=== PATIENT | male | born 1980 | race Caucasian/White ===

== ENCOUNTER 2018-02-01 17:23 | Emergency (ER) | payer SELFPAY ==
[~2018-02-01] VITALS: Ht 185.4 cm; Wt 150.0 kg
[2018-02-01 17:30] VITALS: BP 120/71; PULSE 108; RESP 20; TEMP 98.7; O2SAT 97
[2018-02-01 17:43] VITALS: BP 124/84; PULSE 98; RESP 18; O2SAT 98
[2018-02-01] MEDS ORDERED: SODIUM CHLOR 0.9% 1000 ML INJ 1,000 ML IV ONE (17:52)
[2018-02-01 17:53] VITALS: BP_SYST 119; BP_SYST 145; BP_DIAS 70; BP_DIAS 82; RESP 18; O2SAT 99
[2018-02-01] MEDS ORDERED: SODIUM CHLORIDE 0.9% FLUSH 10 ML FLUSH IVF PRN (18:00)
--- NOTE | 2018-02-01 18:02 | PD ---
HPI Chief Complaint: Cardiac Complaint Time Seen by Provider: 17:42 Travel History International Travel<30 days: No Contact w/Intl Traveler<30days: No Traveled to known affect area: No History of Present Illness HPI The patient is a 37-year-old male who presents to the emergency department for possible syncopal episode. The patient states he was lying down earlier today when he "passed out "for approximately 30 seconds per his friends report. The patient states he does not remember passing out, was told he was unconscious for 30 seconds. The patient does have a history of previous syncopal episodes per his report, mostly when driving. The patient states he will be driving and all of a sudden realize he had passed out, however, will still be driving. He denies any motor vehicle accidents from his syncopal episodes while driving. The patient denies any known history of arrhythmias or dysrhythmias. He does occasionally state that he will get lightheaded and feel like his vision is blurring prior to his syncopal episodes. He denies any known history of aortic stenosis. The patient states he did see his physician and [facility] [place], [place], regarding his syncope, but never had a workup. He currently does not have a primary physician. He denies any chronic medical problems. He does not take any medications on a daily basis. He is allergic to penicillin. 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 PFSH Past Medical History Medical History: Denies Significant Hx Diminished Hearing: No Tetanus Vaccination: Unknown Influenza Vaccination: No ?: Not Past Surgical History Other Surgery: Yes (Abdominal surgery to remove cancerous tumors as a child) Social History Alcohol Use: No Tobacco Use: Yes Substance Use: No Allergies-Medications (Allergen,Severity, Reaction): Coded Allergies: No Known Allergies (Unverified , 02/01/18) Reported Meds & Prescriptions Reported Meds & Active Scripts Active No Active Prescriptions or Reported Medications Review of Systems Except as stated in HPI: all other systems reviewed are Neg General / Constitutional: No: Fever HENT: No: Lightheadedness Cardiovascular: Positive: Syncope, No: Chest Pain or Discomfort, Palpitations, Irregular Rhythm, Tachycardia, Diaphoresis Gastrointestinal: No: Nausea, Vomiting, Abdominal Pain Musculoskeletal: No: Weakness, Edema Neurologic: Positive: Syncope, No: Dizziness, Focal Abnormalities Physical Exam Narrative GENERAL: Awake, alert, nontoxic-appearing 37-year-old male who appears his stated age and is in no acute respiratory distress SKIN: Focused skin assessment warm/dry. HEAD: Atraumatic. Normocephalic. EYES: Pupils equal and round. 3 mm bilateral and reactive. ENT: No nasal bleeding or discharge. Mucous membranes pink and moist. NECK: Trachea midline. No JVD. CARDIOVASCULAR: Regular rate and rhythm. No murmur appreciated. Heart rate in the 90s. RESPIRATORY: No accessory muscle use. Clear to auscultation. Breath sounds equal bilaterally. GASTROINTESTINAL: Abdomen soft, morbidly obese. Well-healed scar on the left aspect of his abdomen that is transverse. MUSCULOSKELETAL: No obvious deformities. No clubbing. No cyanosis. Mild bilateral lower extremity edema. NEUROLOGICAL: Awake and alert. No obvious cranial nerve deficits. Motor grossly within normal limits. Normal speech. Nonfocal. PSYCHIATRIC: Appropriate mood and affect; insight and judgment normal. Data Data Last Documented VS Vital Signs Date Time Temp Pulse Resp B/P (MAP) Pulse Ox O2 Delivery O2 Flow Rate FiO2 02/01/18 21:00 02/01/18 19:15 92 18 98 Room Air 02/01/18 17:30 98.7 Orders Orders Electrocardiogram (02/01/18 17:52) Complete Blood Count With Diff (02/01/18 17:52) Comprehensive Metabolic Panel (02/01/18 17:52) Magnesium (Mg) (02/01/18 17:52) Ckmb (Isoenzyme) Profile (02/01/18 17:52) Troponin I (02/01/18 17:52) Ecg Monitoring (02/01/18 17:52) Iv Access Insert/Monitor (02/01/18 17:52) Oximetry (02/01/18 17:52) Sodium Chloride 0.9% Flush (Ns Flush) (02/01/18 18:00) Sodium Chlor 0.9% 1000 Ml Inj (Ns 1000 M (02/01/18 17:52) Orthostatic Vital Signs (02/01/18 17:52) CKMB (02/01/18 18:00) CKMB% (02/01/18 18:00) Ed Discharge Order (02/01/18 20:41) Labs Laboratory Tests Test 02/01/18 18:00 White Blood Count 8.6 TH/MM3 Red Blood Count 4.80 MIL/MM3 Hemoglobin 15.2 GM/DL Hematocrit 45.1 % Mean Corpuscular Volume 93.9 FL Mean Corpuscular Hemoglobin 31.7 PG Mean Corpuscular Hemoglobin Concent 33.7 % Red Cell Distribution Width 14.5 % Platelet Count 158 TH/MM3 Mean Platelet Volume 9.5 FL Neutrophils (%) (Auto) 57.1 % Lymphocytes (%) (Auto) 32.1 % Monocytes (%) (Auto) 7.8 % Eosinophils (%) (Auto) 1.9 % Basophils (%) (Auto) 1.1 % Neutrophils # (Auto) 4.9 TH/MM3 Lymphocytes # (Auto) 2.7 TH/MM3 Monocytes # (Auto) 0.7 TH/MM3 Eosinophils # (Auto) 0.2 TH/MM3 Basophils # (Auto) 0.1 TH/MM3 CBC Comment DIFF FINAL Differential Comment Blood Urea Nitrogen 20 MG/DL Creatinine 1.01 MG/DL Random Glucose 166 MG/DL Total Protein 7.9 GM/DL Albumin 3.2 GM/DL Calcium Level 9.0 MG/DL Magnesium Level 1.8 MG/DL Alkaline Phosphatase 80 U/L Aspartate Amino Transf (AST/SGOT) 46 U/L Alanine Aminotransferase (ALT/SGPT) 59 U/L Total Bilirubin 0.4 MG/DL Sodium Level 138 MEQ/L Potassium Level 4.0 MEQ/L Chloride Level 101 MEQ/L Carbon Dioxide Level 26.7 MEQ/L Anion Gap 10 MEQ/L Estimat Glomerular Filtration Rate 82 ML/MIN Total Creatine Kinase 296 U/L Creatine Kinase MB 3.0 NG/ML Troponin I LESS THAN 0.02 NG/ML MDM Medical Decision Making Medical Screen Exam Complete: Yes Emergency Medical Condition: Yes Medical Record Reviewed: Yes Interpretation(s) EKG reveals normal sinus rhythm with a rate of 99. No evidence of WPW or Brugada syndrome. No ectopy noted. Differential Diagnosis Differential diagnosis includes syncope, arrhythmia, dysrhythmia, near syncope, seizure, aortic stenosis, valvular disorder, electrolyte abnormality. Narrative Course IV was established, labs are drawn and sent, and the patient was placed on cardiac telemetry monitoring and continuous pulse oximetry monitoring. EKG was ordered and interpreted. The patient orthostatic vital signs were obtained, the patient's heart rate and blood pressure goes up when he stands, however, does not drop. The patient was signed out to the oncoming physician Dr. Ceballos, at 7 PM with laboratory evaluation pending. If labs are unremarkable the patient is stable for outpatient follow-up. Diagnosis Primary Impression: Syncope Qualified Codes: R55 - Syncope and collapse Scripts No Active Prescriptions or Reported Meds Condition: Stable Kristian Meza MD February 01, 2018 18:02
[2018-02-01 18:20] LABS: AUTOMATED NEUTROPHIL # 4.9 TH/MM3 (1.8-7.7); BASOPHIL # 0.1 TH/MM3 (0-0.2); BASOPHIL % 1.1 % (0.0-2.0); EOSINOPHIL # 0.2 TH/MM3 (0-0.4); EOSINOPHIL % 1.9 % (0.0-4.0); HEMATOCRIT 45.1 % (39.0-51.0); HEMOGLOBIN 15.2 GM/DL (13.0-17.0); LYMPH % 32.1 % (9.0-44.0); LYMPHOCYTE # 2.7 TH/MM3 (1.0-4.8); MEAN CELL VOLUME 93.9 FL (80.0-100.0); MEAN CORPUSCULAR HEMOGLOBIN 31.7 PG (27.0-34.0); MEAN CORPUSCULAR HGB CONC 33.7 % (32.0-36.0); MEAN PLATELET VOLUME 9.5 FL (7.0-11.0); MONO % 7.8 % (0.0-8.0); MONOCYTE # 0.7 TH/MM3 (0-0.9); NEUT % 57.1 % (16.0-70.0); PLATELET COUNT 158 TH/MM3 (150-450); RED CELL DISTRIBUTION WIDTH 14.5 % (11.6-17.2); WHITE BLOOD COUNT 8.6 TH/MM3 (4.0-11.0)
[2018-02-01 18:55] LABS: ALBUMIN 3.2 GM/DL (3.4-5.0); AST (GOT) 46 U/L (15-37); BICARBONATE 26.7 MEQ/L (21.0-32.0); BLOOD UREA NITROGEN 20 MG/DL (7-18); CHLORIDE 101 MEQ/L (98-107); CREATININE 1.01 MG/DL (0.60-1.30); GLOMERULAR FILTRATION RATE 82 ML/MIN (>89); GLUCOSE,RANDOM 166 MG/DL (74-106); MAGNESIUM 1.8 MG/DL (1.5-2.5); SODIUM (NA) 138 MEQ/L (136-145)
[2018-02-01 19:00] LABS: ALKALINE PHOSPHATASE 80 U/L (45-117); ALT (GPT) 59 U/L (12-78); TOTAL BILIRUBIN ADULT 0.4 MG/DL (0.2-1.0); TOTAL PROTEIN 7.9 GM/DL (6.4-8.2); TROPONIN I LESS THAN 0.02 NG/ML (0.02-0.05)
[2018-02-01 19:15] VITALS: BP 145/78; PULSE 92; RESP 18; O2SAT 98
--- NOTE | 2018-02-01 20:07 | PD ---
Physical Exam Narrative GENERAL: Young male in no acute distress SKIN: Warm and dry. HEAD: Atraumatic. Normocephalic. EYES: Pupils equal and round. No scleral icterus. No injection or drainage. ENT: No nasal bleeding or discharge. Mucous membranes pink and moist. No lip tongue or uvular edema NECK: Trachea midline. No JVD. No stridor. CARDIOVASCULAR: Regular rate and rhythm. No murmurs rubs or gallops RESPIRATORY: No accessory muscle use. Clear to auscultation. Breath sounds equal bilaterally. No wheezing GASTROINTESTINAL: Abdomen soft, non-tender, nondistended. MUSCULOSKELETAL: Extremities without clubbing, cyanosis, or edema. No obvious deformities. NEUROLOGICAL: Awake and alert. No obvious cranial nerve deficits. Motor grossly within normal limits. Five out of 5 muscle strength in the arms and legs. Normal speech. PSYCHIATRIC: Appropriate mood and affect; insight and judgment normal. Data Data Last Documented VS Vital Signs Date Time Temp Pulse Resp B/P (MAP) Pulse Ox O2 Delivery O2 Flow Rate FiO2 02/01/18 19:15 92 18 145/78 (100) 98 Room Air 02/01/18 17:30 98.7 Orders Orders Electrocardiogram (02/01/18 17:52) Complete Blood Count With Diff (02/01/18 17:52) Comprehensive Metabolic Panel (02/01/18 17:52) Magnesium (Mg) (02/01/18 17:52) Ckmb (Isoenzyme) Profile (02/01/18 17:52) Troponin I (02/01/18 17:52) Ecg Monitoring (02/01/18 17:52) Iv Access Insert/Monitor (02/01/18 17:52) Oximetry (02/01/18 17:52) Sodium Chloride 0.9% Flush (Ns Flush) (02/01/18 18:00) Sodium Chlor 0.9% 1000 Ml Inj (Ns 1000 M (02/01/18 17:52) Orthostatic Vital Signs (02/01/18 17:52) CKMB (02/01/18 18:00) CKMB% (02/01/18 18:00) Labs Laboratory Tests Test 02/01/18 18:00 White Blood Count 8.6 TH/MM3 Red Blood Count 4.80 MIL/MM3 Hemoglobin 15.2 GM/DL Hematocrit 45.1 % Mean Corpuscular Volume 93.9 FL Mean Corpuscular Hemoglobin 31.7 PG Mean Corpuscular Hemoglobin Concent 33.7 % Red Cell Distribution Width 14.5 % Platelet Count 158 TH/MM3 Mean Platelet Volume 9.5 FL Neutrophils (%) (Auto) 57.1 % Lymphocytes (%) (Auto) 32.1 % Monocytes (%) (Auto) 7.8 % Eosinophils (%) (Auto) 1.9 % Basophils (%) (Auto) 1.1 % Neutrophils # (Auto) 4.9 TH/MM3 Lymphocytes # (Auto) 2.7 TH/MM3 Monocytes # (Auto) 0.7 TH/MM3 Eosinophils # (Auto) 0.2 TH/MM3 Basophils # (Auto) 0.1 TH/MM3 CBC Comment DIFF FINAL Differential Comment Blood Urea Nitrogen 20 MG/DL Creatinine 1.01 MG/DL Random Glucose 166 MG/DL Total Protein 7.9 GM/DL Albumin 3.2 GM/DL Calcium Level 9.0 MG/DL Magnesium Level 1.8 MG/DL Alkaline Phosphatase 80 U/L Aspartate Amino Transf (AST/SGOT) 46 U/L Alanine Aminotransferase (ALT/SGPT) 59 U/L Total Bilirubin 0.4 MG/DL Sodium Level 138 MEQ/L Potassium Level 4.0 MEQ/L Chloride Level 101 MEQ/L Carbon Dioxide Level 26.7 MEQ/L Anion Gap 10 MEQ/L Estimat Glomerular Filtration Rate 82 ML/MIN Total Creatine Kinase 296 U/L Creatine Kinase MB 3.0 NG/ML Troponin I LESS THAN 0.02 NG/ML [facility] Medical Record Reviewed: Yes Supervised Visit with REJI: No Narrative Course Negative orthostatics CBC shows no leukocytosis, no anemia, normal platelet count, and no left shift Electrolytes are all within normal limits Normal kidney liver functions Negative first set of cardiac enzymes EKG reviewed, shows a normal sinus rhythm at a rate of 99 bpm, normal intervals , no delta waves, 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 Diagnosis Primary Impression: Syncope, hemodynamically stable Referrals: Dawson Spangler MD For further evaluation of your passing out episodes that you have been experiencing. [facility] Patient Instructions: General Instructions, Syncope (DC) Additional Instruction: It is highly recommended that you do not continue operating heavy machinery, sharp objects or drive a vehicle while you get the rest of your evaluation by a neurologist. You are been referred to a medical clinic for regular health maintenance as well as referral to neurology for further evaluation of your passing out episodes. Scripts No Active Prescriptions or Reported Meds Disposition: 01 DISCHARGE HOME Condition: Stable Mario Ceballos MD February 01, 2018 20:07
--- NOTE | 2018-02-02 13:46 | EKG ---
Date Performed: 02/01/2018 Time Performed: 17:52:24 PTAGE: 37 years EKG: Sinus rhythm NORMAL ECG NO PREVIOUS TRACING DOCTOR: Evert Triana Interpretating Date/Time 02/02/2018 13:44:45
== END 2018-02-01 21:02 | disposition home or self-care (01) ==
LOC: NEPE 17:23
DX: R55 Syncope and collapse (principal); Z72.0 Tobacco use
CPT/HCPCS: 80053; 82550; 82552; 83735; 84484; 85025; 93005; 96360; 99284; J7030